=== PATIENT | female | born 1950 | race Caucasian/White ===

== ENCOUNTER 2017-07-31 00:17 | Emergency (ER) | payer MEDICARE, BC ==
[~2017-07-31] VITALS: Wt 145.5 kg
[~2017-07-31 00:17] MED LIST: ALBUTEROL; ARMOUR THYROID120 MG PO; ASPIRIN E.C. 8181 MG PO; ATENOLOL50 MG PO; COREG12.5 MG PO; DIOVAN320 MG PO; Eliquis; GLUCOPHAGE1000 MG PO; HCTZ 25MG25 MG PO; LIPITOR20 MG PO; Synthroid; TAZTIA XT; TOPROL XL 50MG50 MG PO; VITAMIN D32000 IU PO; [UNRECOGNIZED DRUG - OTHER]
[2017-07-31 00:30] LABS: BASO # 0.1 (0.0-0.2); EOS # 0.4 (0.0-0.7); EOS % 4.4 % (0-4.0); GRAN # 5.2 (1.4-6.5); GRAN % 66.1 % (42.2-75.2); HEMATOCRIT 41.1 % (37.0-47.0); HEMOGLOBIN 13.3 g/dl (12.5-16.0); LYMPH # 1.5 (1.2-3.4); LYMPH % 18.5 % (20.0-51.0); MEAN CELL VOLUME 89 fl (80.0-100.0); MEAN CORPUSCULAR HEMOGLOBIN 29 pg (27.0-31.0); MEAN CORPUSCULAR HGB CONC 32 g/dl (33.0-37.0); MEAN PLATELET VOLUME 10.5 fl (7.4-10.4); MONO # 0.8 (0.1-0.6); MONO % 9.6 % (1.7-9.3); PLATELET COUNT 171 K/mm3 (130-400); RED BLOOD COUNT 4.63 M/mm3 (4.10-5.30); REDCELL DISTRIBUTION WIDTH-CV 14.2 % (11.5-14.5); WHITE BLOOD COUNT 7.9 K/mm3 (4.8-10.8)
[2017-07-31 00:41] LABS: ADJUSTED CALCIUM 9.1 mg/dL (8.4-10.2); ALANINE AMINOTRANSFERASE 26 U/L (9-52); ALBUMIN 3.8 gm/dL (3.5-5.0); ALKALINE PHOSPHATASE 90 U/L (50-136); ANION GAP 11 mmol/L (7-16); BILIRUBIN,TOTAL 0.6 mg/dL (0.0-1.0); BLOOD UREA NITROGEN 20 mg/dL (7-17); CALCIUM 8.9 mg/dL (8.4-10.2); CARBON DIOXIDE 24 mmol/L (22-30); CHLORIDE 107 mmol/L (98-107); CREATININE, serum 0.99 mg/dL (0.52-1.25); GLUCOSE 151 mg/dL (74-106); POTASSIUM 4.1 mmol/L (3.4-5.0); SODIUM 142 mmol/L (137-145); TOTAL PROTEIN 6.5 gm/dL (6.4-8.2)
[2017-07-31 00:54] LABS: TROPONIN-I < 0.012 ng/mL (0.000-0.034)
[2017-07-31 01:31] LABS: MAGNESIUM 1.6 mg/dL (1.6-2.3)
[2017-07-31 02:13] LABS: PROTHROMBIN TIME 10.7 SECONDS (9.7-12.8)
[2017-07-31 02:16] LABS: PARTIAL THROMBOPLASTIN TIME 29.6 SECONDS (26.0-37.0)
[2017-07-31 07:15] VITALS: BP 171/106; PULSE 115
== END 2017-07-31 07:22 | disposition short-term general hospital (02) ==
LOC: COL.ER 00:17
PROVIDERS: Emergency Medicine
DX: I48.92 Unspecified atrial flutter (principal); I10 Essential (primary) hypertension; I48.91 Unspecified atrial fibrillation; E66.9 Obesity, unspecified; E03.9 Hypothyroidism, unspecified; E78.5 Hyperlipidemia, unspecified; Z90.710 Acquired absence of both cervix and uterus; Z85.3 Personal history of malignant neoplasm of breast; Z79.84 Long term (current) use of oral hypoglycemic drugs; Z90.13 Acquired absence of bilateral breasts and nipples
CPT/HCPCS: J1650; J3475; J7050

== ENCOUNTER 2018-12-24 11:20 | Inpatient (IN) | payer MEDICARE, BC ==
[2018-12-24] VITALS (628 sets, daily range): BP systolic 95–131; BP diastolic 47–67; PULSE 96–115; TEMP 98–99; O2SAT 82–99
[~2018-12-24] VITALS: Ht 172.7 cm; Wt 147.6 kg
[2018-12-24 11:43] LABS: BASO # 0.1 (0.0-0.2); BASO % 0.6 % (0.0-2.0); EOS # 0.2 (0.0-0.7); EOS % 2.4 % (0-4.0); GRAN # 6.1 (1.4-6.5); GRAN % 76.2 % (42.2-75.2); HEMATOCRIT 40.5 % (37.0-47.0); HEMOGLOBIN 13.1 g/dl (12.5-16.0); LYMPH # 1.2 (1.2-3.4); LYMPH % 14.8 % (20.0-51.0); MEAN CELL VOLUME 90 fl (80.0-100.0); MEAN CORPUSCULAR HEMOGLOBIN 29 pg (27.0-31.0); MEAN CORPUSCULAR HGB CONC 32 g/dl (33.0-37.0); MEAN PLATELET VOLUME 11.3 fl (7.4-10.4); MONO # 0.5 (0.1-0.6); MONO % 5.9 % (1.7-9.3); PLATELET COUNT 170 K/mm3 (130-400); RED BLOOD COUNT 4.48 M/mm3 (4.10-5.30); REDCELL DISTRIBUTION WIDTH-CV 14.2 % (11.5-14.5)
[2018-12-24 11:52] LABS: INR 1.4 (0.8-3.0)
[2018-12-24 11:54] LABS: PARTIAL THROMBOPLASTIN TIME 39.3 SECONDS (26.0-37.0)
[2018-12-24 11:56] LABS: ALANINE AMINOTRANSFERASE 22 U/L (9-52); ALBUMIN 3.5 gm/dL (3.5-5.0); ALKALINE PHOSPHATASE 75 U/L (50-136); ANION GAP 9 mmol/L (7-16); AST,SGOT 18 U/L (15-37); BILIRUBIN,TOTAL 0.8 mg/dL (0.0-1.0); BLOOD UREA NITROGEN 18 mg/dL (7-17); CALCIUM 8.8 mg/dL (8.4-10.2); CARBON DIOXIDE 26 mmol/L (22-30); CHLORIDE 107 mmol/L (98-107); CREATININE, serum 0.88 mg/dL (0.52-1.25); GLUCOSE 136 mg/dL (74-106); MAGNESIUM 1.7 mg/dL (1.6-2.3); PHOSPHOROUS 3.4 mg/dL (2.5-4.5); POTASSIUM 3.7 mmol/L (3.4-5.0); SODIUM 142 mmol/L (137-145); TOTAL PROTEIN 6.3 gm/dL (6.4-8.2)
[2018-12-24 12:09] LABS: TROPONIN-I < 0.012 ng/mL (0.000-0.035)
--- NOTE | 2018-12-24 12:53 | NUR ---
REPORT RECEIVED FROM KIKA BEDOLLA IN ED.
[2018-12-24] MEDS ORDERED: LEVOXYL0.15 MG PO (12:58)
[2018-12-24] MEDS ORDERED: GLUCOVANCE 2.51 TAB PO (12:58)
[2018-12-24] MEDS ORDERED: COZAAR100 MG PO (12:59)
[2018-12-24] MEDS ORDERED: HYGROTON 2525 MG/TAB PO (12:59)
[2018-12-24] MEDS ORDERED: ELIQUIS 5MG PO (12:59)
[2018-12-24] MEDS ORDERED: ASPIRIN 81M81 MG/TA2 PO (13:00)
[2018-12-24] MEDS ORDERED: COMPLETE SENIOR1 TA1 PO (13:00)
--- NOTE | 2018-12-24 13:59 | NUR ---
DR PURI HERE TO SEE PATIENT
--- NOTE | 2018-12-24 14:20 | NUR ---
DR JAMES PRESENT TO ASSESS PATIENT.
--- NOTE | 2018-12-24 14:30 | NUR ---
PAGED ANESTHESIA TO NOTIFY THEM OF CONSULT FOR CARDIOVERSION IN AM.
--- NOTE | 2018-12-24 14:54 | NUR ---
PAUL HERE TO PERFORM ECHOCARDIOGRAM.
--- NOTE | 2018-12-24 15:04 | NUR ---
NOTIFIED ANESTHESIA OF CONSULT FOR CARDIOVERSION IN AM.
--- NOTE | 2018-12-24 15:17 | NUR ---
CONSENT OBTAINED AND PLACED ON CHART
--- NOTE | 2018-12-24 15:18 | NUR ---
PT SITTING UP EATING MEAL
--- NOTE | 2018-12-24 19:40 | NUR ---
Called Dr. Baez to clarify that he would like Cardizem run through the night because orders were for one dose. Confirms he would like drip ran through the night per titration to maintain HR below 110 and above 60. Orders entered.
--- NOTE | 2018-12-24 20:00 | NUR ---
Assessment complete at this time. Patient resting sitting at the side of the bed. She is alert, oriented, and independent. Vitals stable. No complaints of pain or SOB. Patient has no needs at this time. Will continue to monitor. Call light within reach.
--- NOTE | 2018-12-24 22:47 | NUR ---
TOLD IN REPORT THAT PT WEARS A CPAP WITH A PRESSURE OF 11 AND WEARS A NASAL MASK WITH HUMIDIFICATION. WHEN ASKED PT ABOUT SETTING UP AND WEARING THE CPAP PT REFUSED. SHE SAID "I DON'T THINK I WILL BE GETTING MUCH SLEEP ANYWAYS AND I DON'T WANT TO BE HOOKED UP TO MUCH MORE OF ANYTHING ELSE" PT WAS FINE ON RA AT 95% NO DISTRESS WAS NOTED.
[2018-12-25] VITALS (999 sets, daily range): BP systolic 120–138; BP diastolic 58–84; PULSE 51–95; TEMP 97.6–98.7; O2SAT 83–100
--- NOTE | 2018-12-25 | NUR ---
Patient is sitting at the side of the bed at this time. No complaints of pain. Vitals are stable. Patient's HR has decreased to 80-90s still in Afib. Patient has no needs at this time and is now NPO. Will continue to monitor. Call light within reach.
--- NOTE | 2018-12-25 01:25 | NUR ---
Patient's HR dips below 60bpm at this time. Cardizem decreased to 10. Will continue to monitor and follow titration orders.
--- NOTE | 2018-12-25 04:00 | NUR ---
Patient is asleep at this time. Easily awakens. Patient has no complaints of pain or SOB. Vitals remain stable. HR continues to be stable in the 80-90s. Patient has no needs at this time. Will continue to monitor. Call light within reach.
[2018-12-25 05:16] LABS: BASO # 0.1 (0.0-0.2); BASO % 0.7 % (0.0-2.0); EOS # 0.3 (0.0-0.7); EOS % 3.8 % (0-4.0); GRAN # 5.3 (1.4-6.5); GRAN % 69.3 % (42.2-75.2); HEMATOCRIT 38.6 % (37.0-47.0); HEMOGLOBIN 12.2 g/dl (12.5-16.0); LYMPH # 1.4 (1.2-3.4); LYMPH % 18.4 % (20.0-51.0); MEAN CELL VOLUME 91 fl (80.0-100.0); MEAN CORPUSCULAR HEMOGLOBIN 29 pg (27.0-31.0); MEAN CORPUSCULAR HGB CONC 32 g/dl (33.0-37.0); MEAN PLATELET VOLUME 11.5 fl (7.4-10.4); MONO # 0.6 (0.1-0.6); MONO % 7.7 % (1.7-9.3); PLATELET COUNT 165 K/mm3 (130-400); RED BLOOD COUNT 4.23 M/mm3 (4.10-5.30); REDCELL DISTRIBUTION WIDTH-CV 14.4 % (11.5-14.5)
[2018-12-25 05:30] LABS: CREATININE, serum 0.78 mg/dL (0.52-1.25); POTASSIUM 3.5 mmol/L (3.4-5.0)
--- NOTE | 2018-12-25 07:15 | NUR ---
Received bedside report from GRAEME Aguilar. Patient was awkake and relaxing in bed. Medications varified.
--- NOTE | 2018-12-25 07:40 | NUR ---
Bedside report given to GRAEME Aguero and GRAEME Muñoz. Drip rates and medications reviewed. Transfer of care at this time.
--- NOTE | 2018-12-25 10:43 | NUR ---
SW attended clinical rounds and met with patient afterwards. Patient lives independently at home by herself. Her PCP is Dr Ryan Hernandez and she obtains prescriptions from [facility]. Patient does not use any medical equipment or home health services. She does have a DPOA for healthcare decisions. SW does not anticipate any needs upon discharge.
--- NOTE | 2018-12-25 17:10 | NUR ---
Dr Boyle in to see pt and gave ok for discharge. INT dc'd and pt dressed. D/C paperwork completed and reviewed with pt. Pt waiting on ride at this time. Will discharge once ride arrives.
--- NOTE | 2018-12-25 17:55 | NUR ---
Pt taken out to private car for discharge at this time.
== END 2018-12-25 17:55 | disposition home or self-care (01) | DRG 309 ==
LOC: COL.ER 11:20 → ICU 11:57
PROVIDERS: Emergency Medicine; ADMIT Hospitalist
PROC: 5A2204Z Restoration of Cardiac Rhythm, Single (ICD-10-PCS; principal; 2018-12-25)
DX: I48.0 Paroxysmal atrial fibrillation (principal); Z68.42 Body mass index [BMI] 45.0-49.9, adult; E78.5 Hyperlipidemia, unspecified; I10 Essential (primary) hypertension; E11.9 Type 2 diabetes mellitus without complications; E66.01 Morbid (severe) obesity due to excess calories; Z85.3 Personal history of malignant neoplasm of breast; J45.909 Unspecified asthma, uncomplicated; Z87.891 Personal history of nicotine dependence; G47.33 Obstructive sleep apnea (adult) (pediatric); E03.9 Hypothyroidism, unspecified; Z79.01 Long term (current) use of anticoagulants
CPT/HCPCS: 99222-AI; 99232-AI; 99239; J1160; J2704; J7030

== ENCOUNTER 2019-01-19 17:09 | Inpatient (IN) | payer MEDICARE, BC ==
[2019-01-19] VITALS (110 sets, daily range): BP systolic 142; BP diastolic 107; PULSE 124–130; TEMP 97.8; O2SAT 95–100
[~2019-01-19] VITALS: Ht 172.7 cm; Wt 146.4 kg
[~2019-01-19 17:09] MED LIST changes: +ASPIRIN 81M81 MG/TA2 PO; +COMPLETE SENIOR1 TA1 PO; +COZAAR100 MG PO; +ELIQUIS 5MG PO; +GLUCOVANCE 2.51 TAB PO; +HYGROTON 2525 MG/TAB PO; +LEVOXYL0.15 MG PO
[2019-01-19 17:47] LABS: BASO # 0.1 (0.0-0.2); BASO % 0.9 % (0.0-2.0); EOS # 0.4 (0.0-0.7); EOS % 3.8 % (0-4.0); GRAN # 6.2 (1.4-6.5); GRAN % 67.3 % (42.2-75.2); HEMATOCRIT 44.3 % (37.0-47.0); INR 1.1 (0.8-3.0); LYMPH # 1.7 (1.2-3.4); LYMPH % 18.5 % (20.0-51.0); MEAN CELL VOLUME 90 fl (80.0-100.0); MEAN CORPUSCULAR HEMOGLOBIN 28 pg (27.0-31.0); MEAN CORPUSCULAR HGB CONC 32 g/dl (33.0-37.0); MEAN PLATELET VOLUME 11.5 fl (7.4-10.4); MONO # 0.8 (0.1-0.6); MONO % 9.1 % (1.7-9.3); PLATELET COUNT 184 K/mm3 (130-400); PROTHROMBIN TIME 12.6 SECONDS (9.7-12.8); RED BLOOD COUNT 4.95 M/mm3 (4.10-5.30); REDCELL DISTRIBUTION WIDTH-CV 13.8 % (11.5-14.5)
[2019-01-19 17:50] LABS: PARTIAL THROMBOPLASTIN TIME 38.3 SECONDS (26.0-37.0)
[2019-01-19 17:52] LABS: ALANINE AMINOTRANSFERASE 28 U/L (9-52); ALBUMIN 3.8 gm/dL (3.5-5.0); ALKALINE PHOSPHATASE 86 U/L (50-136); ANION GAP 6 mmol/L (7-16); AST,SGOT 26 U/L (15-37); BILIRUBIN,TOTAL 0.7 mg/dL (0.0-1.0); BLOOD UREA NITROGEN 23 mg/dL (7-17); CARBON DIOXIDE 27 mmol/L (22-30); CHLORIDE 104 mmol/L (98-107); CREATININE, serum 0.81 mg/dL (0.52-1.25); GLUCOSE 88 mg/dL (74-106); POTASSIUM 4.3 mmol/L (3.4-5.0); SODIUM 138 mmol/L (137-145); TOTAL PROTEIN 6.8 gm/dL (6.4-8.2)
[2019-01-19 18:03] LABS: TROPONIN-I < 0.012 ng/mL (0.000-0.035)
[2019-01-19] MEDS ORDERED: HYGROTON 2525 MG/TAB (18:54)
[2019-01-19] MEDS ORDERED: COZAAR100 MG PO (18:54)
[2019-01-19] MEDS ORDERED: LIPITOR 80MG80 MG PO (19:46)
[2019-01-19 20:09] LABS: MAGNESIUM 1.8 mg/dL (1.6-2.3)
--- NOTE | 2019-01-19 20:30 | NUR ---
Pt admitted to ICU bed 3 from ED. Pt arrived via stretcher and placed on technical instructor course developer. Vitals stable upon arrival. Pt denies any complaints at this time. Will continue to monitor.
[2019-01-19 20:40] LABS: TSH w REFLEX 1.73 uIU/mL (0.465-4.680)
--- NOTE | 2019-01-19 23:27 | NUR ---
Admission assessment complete at this time. Plan of care reviewed at bedside with patient. Additional time taken to address any other needs or concerns. Vitals stable at this time. Denies pain or any other discomfort. Will continue to monitor.
--- NOTE | 2019-01-19 23:43 | NUR ---
Discontinuing cardizem per order and switching to amiodarone
[2019-01-20] VITALS (202 sets, daily range): BP systolic 069–166; BP diastolic 61–114; PULSE 62–101; TEMP 97.5–98.5; O2SAT 67–100
--- NOTE | 2019-01-20 | NUR ---
Pt resting comfortably in bed. Amiodarone bolus complete at this time and gtt started at 1 mg/min. Vitals stable at this time. Denies pain or any other discomfort. Will continue to monitor.
--- NOTE | 2019-01-20 04:00 | NUR ---
Pt sleeping comfortably in bed. Denies pain or any other discomfort. Vitals stable at this time. Will continue to monitor.
[2019-01-20 05:20] LABS: BASO # 0.1 (0.0-0.2); BASO % 1.1 % (0.0-2.0); EOS # 0.3 (0.0-0.7); EOS % 3.3 % (0-4.0); GRAN # 5.4 (1.4-6.5); GRAN % 67.5 % (42.2-75.2); HEMATOCRIT 41.8 % (37.0-47.0); HEMOGLOBIN 13.3 g/dl (12.5-16.0); LYMPH # 1.5 (1.2-3.4); LYMPH % 18.7 % (20.0-51.0); MEAN CELL VOLUME 90 fl (80.0-100.0); MEAN CORPUSCULAR HEMOGLOBIN 29 pg (27.0-31.0); MEAN CORPUSCULAR HGB CONC 32 g/dl (33.0-37.0); MEAN PLATELET VOLUME 11.3 fl (7.4-10.4); MONO # 0.7 (0.1-0.6); MONO % 8.9 % (1.7-9.3); PLATELET COUNT 176 K/mm3 (130-400); RED BLOOD COUNT 4.64 M/mm3 (4.10-5.30); REDCELL DISTRIBUTION WIDTH-CV 13.9 % (11.5-14.5)
[2019-01-20 05:32] LABS: CALCIUM 8.8 mg/dL (8.4-10.2); CREATININE, serum 0.7 mg/dL (0.52-1.25); POTASSIUM 3.6 mmol/L (3.4-5.0)
--- NOTE | 2019-01-20 07:32 | NUR ---
Bedside report given to GRAEME Thomas.
--- NOTE | 2019-01-20 07:47 | NUR ---
Report recieved from GRAEME Chandler. Pt AAOx4, no complaints, SMART goals for the day set, NPO status re-educated. Call light within reach, pt states "I will call if I need to get up to use the bathroom".
--- NOTE | 2019-01-20 09:50 | NUR ---
AMANDA and SW student met with the patient to discuss discharge plan. The patient lives alone in [place]. She states that she has friend support nearby. She reports independence with ADLs and has a walker and cane. The patient's PCP is Dr. Ryan Hernandez and she receives her medications at the [facility]. She reports no difficulties obtaining her meds. The patient does not have advanced directives in EMR, but states that she does have them completed. The patient reports that her friend Cate Jones, who is also her DPOA-HC, can bring a copy in. AMANDA also completed the 30 Re-admission Interview with the patient. The patient plans to return home upon discharge. No identified needs at this time, but SW to continue to follow.
--- NOTE | 2019-01-20 10:06 | NUR ---
Initial visit; Patient thanked [employer]keeper [employer] for looking in on her, offering God's blessings and adding her to the list for [facility] on Saturday.
--- NOTE | 2019-01-20 10:10 | NUR ---
MD Sasha and BeverlyRN at bedside - plan to perform elective cardioversion - pt consented. Anesthesia contacted by GRAEME Paul. Room prepeared with: OM mask, suction, 1L NS, Zoll Patchs Anterior-Posterior applied, crash-cart outside room. Pt denies nervousness at this time. Pt has voided
--- NOTE | 2019-01-20 11:03 | NUR ---
All parties present, time out completed, pt and staff all in agreement.
--- NOTE | 2019-01-20 11:03 | NUR ---
200J synchronized shock delivered - converted rhythm to sinus, rate in the 60's.
--- NOTE | 2019-01-20 13:16 | NUR ---
Report phoned to GRAEME Johns
--- NOTE | 2019-01-20 15:00 | NUR ---
pt arrived to unit, oriented to room, physical assessment completed nad WNL. she denies SOB, palpitaitons, heart is regular S1S2 to auscultation, on RAn, lungs clear throughout, pulses 2+ bilaterally. Friends at bedside, call lgiht in reach
--- NOTE | 2019-01-20 17:26 | NUR ---
Since pt arrived to unit she has denied any pain, palpitations, SOB. Vitals stable, no complaints, call lgt in reach
--- NOTE | 2019-01-20 19:12 | NUR ---
Report given to Myah Najera, pt denies needs
--- NOTE | 2019-01-20 22:14 | NUR ---
Patient assessed at this time. Denies having pain and discomfort. INT to right hand, patent, and without redness, warmth, and pain. Flushed with 5ml NS. LS CTA. Heart with regular rate and rhythm. Denies SOB and dyspnea. Denies chest pain and discomfort. Resting in bed watching TV at this time. Call light is within reach. Denies having any needs or concerns at this time.
[2019-01-21 03:36] VITALS: BP 150/66; PULSE 95; TEMP 97.6
--- NOTE | 2019-01-21 06:52 | NUR ---
Patient has been denying having pain and discomfort throughout the night. Voices no needs or concerns. Sitting up in bed watching TV at this time. Call light is within reach.
--- NOTE | 2019-01-21 07:00 | NUR ---
Report on to GRAEME Zhao.
--- NOTE | 2019-01-21 07:30 | NUR ---
Shift assessment complete, tele on, heart rate and rhythm regular. INT in right hand no redness/swelling noted. Pt sitting up in bed, no concerns or complaints of pain.
[2019-01-21 07:45] LABS: CALCIUM 8.5 mg/dL (8.4-10.2); CREATININE, serum 0.73 mg/dL (0.52-1.25); POTASSIUM 3.6 mmol/L (3.4-5.0)
[2019-01-21 07:53] VITALS: BP 153/78; PULSE 68; TEMP 98.5
--- NOTE | 2019-01-21 08:31 | NUR ---
Patient alert and oriented, answers questions appropriately. See assessment. No c/o chest pain or pressure. No c/o pain radiating to BUE. No c/o heart racing. Requests to discharge today. No other c/o at this time.
[2019-01-21 11:08] VITALS: BP 155/78; PULSE 65; TEMP 97.5
--- NOTE | 2019-01-21 11:11 | NUR ---
Assessment unchanged, VSS, voiced no concerns at this time.
--- NOTE | 2019-01-21 11:44 | NUR ---
Report off to GRAEME Zhao
[2019-01-21 15:48] VITALS: BP 166/65; PULSE 63; TEMP 97.4
--- NOTE | 2019-01-21 20:12 | NUR ---
Resting in recliner. Assessment complete. Lungs clear. Heart sounds normal. Bowels active x4. Bilateral lower leg edema +1. INT site right hand flushes well. Provided patient 6 units of novolog for blood sugar of 206 at this time. Denies any pain. Denies needs. Telemetry pads checked and replaced. Call light in reach.
[2019-01-21 21:57] VITALS: BP 128/64; PULSE 56; TEMP 97.8
--- NOTE | 2019-01-22 00:15 | NUR ---
Resting in recliner. Denies needs. Call light in reach.
[2019-01-22 00:49] VITALS: BP 150/69; PULSE 59; TEMP 97.6
--- NOTE | 2019-01-22 01:45 | NUR ---
0130- Reports SOA while resting. States wears CPAP at home, but does not like hospital CPAPs. Oxygen saturation 95% on room air. Provided patient with 1 liter of oxygen while sleeping. 0145 Reports feels like oxygen helping. Will report any other changes
--- NOTE | 2019-01-22 04:39 | NUR ---
Resting in bed. Denies pain. Denies needs. Call light in reach.
[2019-01-22 04:56] VITALS: BP 138/59; PULSE 60; TEMP 97.4
--- NOTE | 2019-01-22 06:24 | NUR ---
Uneventful night. Resting in bed this AM. Call light in reach.
--- NOTE | 2019-01-22 06:59 | NUR ---
Pt was sleeping prior to entering room, AAOx4 now, stating some "chest heaviness and 3-5 times per minute requring a deep breath". Last EKG was completed yesteray (01/21/2019) around 1300. EKG ordered and respiratory therapist called. MD Cristal called and notified - requesting EKG, informed EKG per ordered already per protocol. Chest heaviness stated as a 3-4/10. Pt requesting another 1-2hours of sleep. laboratory technical specialist Rachel notified of stated chest pain.
--- NOTE | 2019-01-22 07:19 | NUR ---
Report given to GRAEME Thomas.
[2019-01-22 07:39] VITALS: BP 147/67; PULSE 57; TEMP 98.5
[2019-01-22 11:08] VITALS: BP 151/62; PULSE 58; TEMP 98.3
[2019-01-22 15:25] VITALS: BP 149/56; PULSE 62; TEMP 98.7
--- NOTE | 2019-01-22 19:02 | NUR ---
Report received from GRAEME Thomas. Sitting at bedside. Denies needs.
[2019-01-22 19:28] VITALS: BP 141/59; PULSE 64; TEMP 97.4
--- NOTE | 2019-01-22 21:30 | NUR ---
Resting in recliner. Assessment complete. Lungs clear. Heart sounds normal, irregular. Bowels active x4. Bilateral lower leg edema +1 present. Denies pain. INT to right hand leaking when flushed. Attempted x1 to start new INT, unsuccessful. Patient would like to keep current INT. Redressed and no longer leaking when flushed. Will closely monitor. Denies needs at this time. Call light in reach.
[2019-01-23 00:23] VITALS: BP 138/50; PULSE 69; TEMP 97.7
--- NOTE | 2019-01-23 01:20 | NUR ---
Resting in bed. Denies need. Denies pain. Call light in reach.
[2019-01-23 04:21] VITALS: BP 142/67; PULSE 57; TEMP 97.7
--- NOTE | 2019-01-23 06:16 | NUR ---
Unevenful night. No reports of chest tightness or shortness of breath throughout night. Sitting in recliner watching TV this AM. Denies needs. Call light in reach.
--- NOTE | 2019-01-23 06:48 | NUR ---
Report given to GRAEME Johns. Patient resting in bed.
--- NOTE | 2019-01-23 07:40 | NUR ---
Pt is A+Ox3, pleasant, denies pain, SOB, palpitations. QTC was 452 this am. Physical assessment completed, heart regular S1S2. RLE 2+ edema. pt on RA, ate full breakfast, denies further needs, call light in reach. INT to Rwrist flushes easily, no redness
[2019-01-23 07:59] VITALS: BP 130/65; PULSE 64; TEMP 98.7
[2019-01-23] MEDS ORDERED: BETAPACE 80MG80 MG PO (10:13)
--- NOTE | 2019-01-23 11:37 | NUR ---
THis RN reveiwed discharge instructions with pt, answered all questions, called pharmacy to verify a medication questions, no further needs. INT removed with tip intact, site free of redness, swelling. Personal belongings collected
== END 2019-01-23 11:38 | disposition home or self-care (01) | DRG 309 ==
LOC: COL.ER 17:09 → ICU 19:49 → MEDICAL 01-20 14:02
PROVIDERS: Family Medicine; Nurse Practitioner Family; Physician Assistant
PROC: 5A2204Z Restoration of Cardiac Rhythm, Single (ICD-10-PCS; principal; 2019-01-20)
DX: I48.0 Paroxysmal atrial fibrillation (principal); Z68.41 Body mass index [BMI] 40.0-44.9, adult; I10 Essential (primary) hypertension; E78.5 Hyperlipidemia, unspecified; E11.9 Type 2 diabetes mellitus without complications; G47.33 Obstructive sleep apnea (adult) (pediatric); Z85.3 Personal history of malignant neoplasm of breast; E03.9 Hypothyroidism, unspecified; Z87.891 Personal history of nicotine dependence; Z79.01 Long term (current) use of anticoagulants; E66.01 Morbid (severe) obesity due to excess calories
CPT/HCPCS: 99223-AI; 99231-AI; 99232-AI; 99239; J0282; J1815; J7060

== ENCOUNTER 2019-07-25 11:24 | Inpatient (IN) | payer MEDICARE, BC ==
[~2019-07-25] VITALS: Ht 172.7 cm; Wt 156.1 kg
[~2019-07-25 11:24] MED LIST changes: +BETAPACE 80MG80 MG PO; +HYGROTON 2525 MG/TAB; +LIPITOR 80MG80 MG PO
[2019-07-25 14:14] LABS: BASO # 0.1 (0.0-0.2); BASO % 0.7 % (0.0-2.0); EOS # 0.5 (0.0-0.7); EOS % 4.9 % (0-4.0); GRAN # 7.4 (1.4-6.5); GRAN % 76.8 % (42.2-75.2); LYMPH # 0.9 (1.2-3.4); LYMPH % 9.3 % (20.0-51.0); MEAN CELL VOLUME 92 fl (80.0-100.0); MEAN CORPUSCULAR HGB CONC 31 g/dl (33.0-37.0); MONO # 0.8 (0.1-0.6); PLATELET COUNT 211 K/mm3 (130-400); RED BLOOD COUNT 3.44 M/mm3 (4.10-5.30); REDCELL DISTRIBUTION WIDTH-CV 13.8 % (11.5-14.5)
[2019-07-25 14:15] LABS: HEMATOCRIT 31.5 % (37.0-47.0); HEMOGLOBIN 9.9 g/dl (12.5-16.0); MEAN CORPUSCULAR HEMOGLOBIN 29 pg (27.0-31.0)
[2019-07-25 14:19] LABS: INR 1.4 (0.8-3.0); PROTHROMBIN TIME 17.1 SECONDS (9.7-12.8)
[2019-07-25 14:21] LABS: PARTIAL THROMBOPLASTIN TIME 35.3 SECONDS (26.0-37.0)
[2019-07-25 14:30] LABS: ALBUMIN 3.6 gm/dL (3.5-5.0); C-REACTIVE PROTEIN 5.6 mg/dL (0.0-0.9); CALCIUM 8.6 mg/dL (8.4-10.2); CREATININE, serum 0.86 (0.52-1.25); TOTAL PROTEIN 6.7 gm/dL (6.4-8.2)
[2019-07-25 15:19] LABS: COLLECTION METHOD CLEAN CATCH
[2019-07-25 15:26] LABS: MUCOUS Present /lpf; PH 5 (5-8); URINE APPEARANCE Clear; URINE BACTERIA Rare /hpf; URINE BILIRUBIN Negative (NEGATIVE); URINE BLOOD Negative (NEGATIVE); URINE COLOR Yellow; URINE GLUCOSE Negative (NEGATIVE); URINE KETONE Negative (NEGATIVE); URINE LEUKOCYTE ESTERASE Negative (NEGATIVE); URINE NITRATE Negative (NEGATIVE); URINE PROTEIN(semi-quant) Negative (NEGATIVE); URINE UROBILINOGEN >=4.0 mg/dL (NEGATIVE)
--- NOTE | 2019-07-25 18:34 | NUR ---
Pt arrived into room 316 at this time. She is A/O x3. LLE red and swollen, some drainage. IV abx infusing. POC discussed with patient who verbalizes understanding.
[2019-07-25 19:12] VITALS: BP 162/61; PULSE 72
[2019-07-25 20:03] VITALS: BP 162/61; PULSE 71; TEMP 98.3
[2019-07-25] MEDS ORDERED: NORVASC 10MG10 MG PO (20:26)
--- NOTE | 2019-07-25 20:30 | NUR ---
Admission assessment completed. Home meds reviewed. Pt comfortable. Friends at bedside. Respirations even and unlabored. Lungs clear. Abdomen soft, nontender. BS+. LLE edematous, red, hot and weeping. Two open areas noted, as well as a blister. culture obtained. Wrapped with guaze. Pedal pulses 2+. IVF to RAC IV site. Ambultatory to bathroom. No needs noted.
[2019-07-25 21:27] VITALS: BP 140/51; PULSE 58; TEMP 98.8
--- NOTE | 2019-07-25 22:05 | NUR ---
Spoke with Abbie VALLE on phone. Orders received to keep pt NPO after midnight until seen by ortho.
[2019-07-26] VITALS (7 sets, daily range): BP systolic 127–146; BP diastolic 44–62; PULSE 58–67; TEMP 97.5–99.9
--- NOTE | 2019-07-26 02:00 | NUR ---
Pt reports increased pain to LLE 8/10 which woke her from sleep. Leg dressing changed.
--- NOTE | 2019-07-26 05:28 | NUR ---
Pt resting in bed. No acute distress noted. Pt c/o pain 5/10 in LLE. PRN pain medication given.
[2019-07-26 05:59] LABS: BASO # 0.1 (0.0-0.2); BASO % 0.6 % (0.0-2.0); EOS # 0.5 (0.0-0.7); EOS % 5.2 % (0-4.0); GRAN # 6.9 (1.4-6.5); GRAN % 74.3 % (42.2-75.2); LYMPH % 10.9 % (20.0-51.0); MEAN CELL VOLUME 91 fl (80.0-100.0); MEAN CORPUSCULAR HGB CONC 32 g/dl (33.0-37.0); MEAN PLATELET VOLUME 11.2 fl (7.4-10.4); MONO # 0.8 (0.1-0.6); MONO % 8.6 % (1.7-9.3); PLATELET COUNT 176 K/mm3 (130-400); RED BLOOD COUNT 3.15 M/mm3 (4.10-5.30); REDCELL DISTRIBUTION WIDTH-CV 13.9 % (11.5-14.5)
[2019-07-26 06:00] LABS: CALCIUM 8.3 mg/dL (8.4-10.2); CREATININE, serum 0.63 (0.52-1.25); POTASSIUM 3.9 mmol/L (3.4-5.0)
[2019-07-26 06:02] LABS: HEMATOCRIT 28.5 % (37.0-47.0); HEMOGLOBIN 9.2 g/dl (12.5-16.0); MEAN CORPUSCULAR HEMOGLOBIN 29 pg (27.0-31.0)
--- NOTE | 2019-07-26 07:16 | NUR ---
Vancomycin Initial Dosing Pharmacy Note Ordering provider: Rito Valdez MD Indication/duration: CELLULITIS Relevant comorbidities: DM, OBESITY LABS: WBC 9.3, SCr 0.63, CrCl >100 Recommendation: 10 mg/kg Loading dose: vancomycin 1.5 grams Maintenance dose: vancomycin 1.5 grams every 12 hours Trough goal: 10-15 ug/mL, trough 07/27/19 @1900
--- NOTE | 2019-07-26 09:41 | NUR ---
Pt assessment complete. Pt is laying in bed upon entry, she is A/O x3. Her breathing is even and unlabored on RA. Pt denies SOB. Pt reports pain 3/10, refuses intervention at this time. Dressing to LLE changed at this time, no wheeping visualized. Ortho in to see patient. IVF infusing without complications. No needs at this time. Call light within reach.
--- NOTE | 2019-07-26 13:43 | NUR ---
Patient lives at home alone in [place], [place] and plans to return home upon her recovery. 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 Patient has mobility assistance devices at home to use if needed from previous surgeries/injuries. Her primary care physician is Dr. Janice Weber and also receives medical care from Dr. Jarocho Loaiza and Dr. Toñito Bee. Patient's pharmacy is [facility] and she does have advance directives of healthcare completed which she has named her friend Rachel Woodruff as her primary DPOA (phone [phone]) and her secondary DPOA as her friend Cate Warren (phone [phone]). Patient lives alone but has many local friends who help support her needs. No further needs at this time and social insurance administrator will follow as needed.
--- NOTE | 2019-07-26 19:19 | NUR ---
Pt had intermittent pain through the day. PRN pain medications administered. LLE elevated on pillows, dressing CDI and ice in place. POC discussed with patient who will remain NPO after midnight for possible procedure with ortho in the AM, pt verbalizes understanding. During the afternoon the patient's O2 was below 90%, patient placed on 2L O2 via NC. Pt does report some "wheeziness" and cough that started today. RT notified. No needs at this time. Call light within reach.
--- NOTE | 2019-07-26 19:20 | NUR ---
Shift assessment complete. Pt resting in bed, awake, a&o, cooperative c cares. Pt c/o continued pain to LLE, rated "not much" at rest but reports int "intense, shooting pain... 04/27"; PRN pain anesthesiology medical doctor per pt req. Pt denies any other c/o. LLE elevated c ice in place, dressing per ortho C/D/I, CSM intact. IV patent. Tele in place. Pt denies further needs. Call light in reach, will continue to monitor.
[2019-07-27 03:52] VITALS: BP 135/57; PULSE 55; TEMP 98.7
[2019-07-27 06:17] LABS: BASO # 0.1 (0.0-0.2); BASO % 0.7 % (0.0-2.0); EOS # 0.5 (0.0-0.7); EOS % 5.1 % (0-4.0); GRAN # 6.7 (1.4-6.5); GRAN % 74.4 % (42.2-75.2); LYMPH # 0.9 (1.2-3.4); LYMPH % 9.9 % (20.0-51.0); MEAN CELL VOLUME 92 fl (80.0-100.0); MEAN CORPUSCULAR HGB CONC 31 g/dl (33.0-37.0); MEAN PLATELET VOLUME 11.2 fl (7.4-10.4); MONO # 0.9 (0.1-0.6); MONO % 9.6 % (1.7-9.3); PLATELET COUNT 186 K/mm3 (130-400); RED BLOOD COUNT 3.03 M/mm3 (4.10-5.30); REDCELL DISTRIBUTION WIDTH-CV 13.9 % (11.5-14.5)
[2019-07-27 06:25] LABS: CREATININE, serum 0.66 (0.52-1.25); POTASSIUM 3.6 mmol/L (3.4-5.0)
[2019-07-27 06:27] LABS: HEMOGLOBIN 8.8 g/dl (12.5-16.0); MEAN CORPUSCULAR HEMOGLOBIN 29 pg (27.0-31.0)
[2019-07-27 07:13] VITALS: BP 134/62; PULSE 58; TEMP 97.9
--- NOTE | 2019-07-27 08:00 | NUR ---
Patient A&Ox4, VSS O2 2L NC, no reported SOB. IV CDI, fluids infusing. Consent signed for procedure on LLL. Patient NPO. LLL elevated on 3 pillows, wrapped with emily wrap. No further needs expressed from patient. Call light within reach
--- NOTE | 2019-07-27 11:15 | NUR ---
Patient back to room 316 from OR. A&Ox4, reporting decreased pain in LLL, rating 3/10. No pain medication requested. Post op VS monitored. Patient assisted with SB assist back to bed. Call light within reach. Ana Maria at bedside to place a PICC line.
[2019-07-27 12:50] VITALS: BP 135/61; PULSE 62; TEMP 97.7
--- NOTE | 2019-07-27 14:44 | NUR ---
Initial visit; Patient thanked Headwaitress for looking in on her and although she is well cared for by her alevism family now knows there is someone here who has offered to help also.
[2019-07-27 16:27] VITALS: BP 123/43; PULSE 61; TEMP 98.6
--- NOTE | 2019-07-27 18:00 | NUR ---
Patient resting in bed. LLL elevated on pillow, hemovac with 30ml sanganious output. VSS 4L NC O2, no reported SOB. IV CDI, fluids infusing. No pain medication requested. No further needs expressed from patient. Call light within reach
[2019-07-27 19:01] VITALS: BP 145/54; PULSE 64; TEMP 99.5
--- NOTE | 2019-07-27 19:50 | NUR ---
Shift assessment complete. Pt resting in bed, awake, a&o, cooperative c cares. Pt cont c/o pain to LLE, reports pain is "much better" p ortho procedure. Pain rated "about 5/10" c int sharp shooting pains; PRN pain medical social worker per pt request. Pt denies any other c/o. Ortho dressing noted to LLE hematoma, dressing C/D/I. Hemavac in place, compression suction s difficulty c aleks bloody drainage noted. PICC noted to RUE, patent c good blood return. O2 per NC. Tele in place. Pt denies further needs at this time. Call light in reach, will continue to monitor.
[2019-07-27 23:56] VITALS: BP 141/49; PULSE 59; TEMP 97.8
[2019-07-28 03:05] VITALS: BP 141/75; PULSE 55; TEMP 98.3
[2019-07-28 07:07] LABS: BASO # 0.1 (0.0-0.2); BASO % 0.5 % (0.0-2.0); EOS # 0.5 (0.0-0.7); EOS % 4.8 % (0-4.0); GRAN # 7.4 (1.4-6.5); GRAN % 79.1 % (42.2-75.2); LYMPH # 0.6 (1.2-3.4); LYMPH % 6.5 % (20.0-51.0); MEAN CELL VOLUME 93 fl (80.0-100.0); MEAN CORPUSCULAR HGB CONC 31 g/dl (33.0-37.0); MEAN PLATELET VOLUME 11.5 fl (7.4-10.4); MONO # 0.8 (0.1-0.6); MONO % 8.7 % (1.7-9.3); PLATELET COUNT 185 K/mm3 (130-400); RED BLOOD COUNT 2.87 M/mm3 (4.10-5.30); REDCELL DISTRIBUTION WIDTH-CV 13.8 % (11.5-14.5)
[2019-07-28 07:14] LABS: CALCIUM 7.7 mg/dL (8.4-10.2); CREATININE, serum 0.74 (0.52-1.25); MAGNESIUM 2.1 mg/dL (1.6-2.3); POTASSIUM 3.7 mmol/L (3.4-5.0)
[2019-07-28 07:15] LABS: HEMATOCRIT 26.6 % (37.0-47.0); HEMOGLOBIN 8.2 g/dl (12.5-16.0); MEAN CORPUSCULAR HEMOGLOBIN 29 pg (27.0-31.0)
[2019-07-28 08:11] VITALS: BP 146/59; PULSE 59; TEMP 98.4
--- NOTE | 2019-07-28 08:32 | NUR ---
Pt assessment complete. Pt is laying in bed upon entry, she is A/O x3. Her breathing is even and unlabored on 4L O2, pt has audible tracheal wheezing. Pt reports some SOB and cough. Pain 5/10, PRN pain medication administered. Pt denies N/V. Pt advised to elevated LLE, verbalizes understanding. No needs at this time. Call light within reach.
[2019-07-28 12:25] VITALS: BP 133/58; PULSE 65; TEMP 98
[2019-07-28 15:01] VITALS: BP 152/62; PULSE 68; TEMP 98.3
--- NOTE | 2019-07-28 15:14 | NUR ---
AMANDA met with the patient to review discharge plan. The patient reports that she still plans to return home upon discharge and is not interested in any home health services. The patient had no other questions or concerns at this time. AMANDA to continue to follow.
--- NOTE | 2019-07-28 18:38 | NUR ---
Pt had uneventful day. Pain improved to LLE. Pt remains on 4L O2 via NC, feels SOB on exertion occasionally at rest. Drain in place. No needs at this time. Call light within reach.
[2019-07-28 19:53] VITALS: BP 149/55; PULSE 66; TEMP 98.1
--- NOTE | 2019-07-28 20:00 | NUR ---
Shift assessment complete. Pt resting in bed, awake, a&o, cooperative c cares. Pt cont c/o LLE pain, rated "5/10" at this time; PRN [place] admin c HS meds per pt request. Pt denies any other pain or c/o. Ortho dressing to LLE C/D/I. Hemavac to compression drainage s complication, small amount bloody drainage noted. PICC noted to RUE, patent c good blood return. Tele in place. O2 per NC. Pt denies further needs. Call light in reach, will continue to monitor.
[2019-07-28 23:32] VITALS: BP 139/53; PULSE 58; TEMP 98.1
[2019-07-29 03:49] VITALS: BP 151/63; PULSE 65; TEMP 97.8
[2019-07-29 06:33] LABS: CALCIUM 8.1 mg/dL (8.4-10.2); CREATININE, serum 0.7 (0.52-1.25); POTASSIUM 3.7 mmol/L (3.4-5.0)
[2019-07-29 08:13] VITALS: BP 152/61; PULSE 66; TEMP 97.7
[2019-07-29 08:15] LABS: HEMATOCRIT 28.1 % (37.0-47.0); HEMOGLOBIN 8.6 g/dl (12.5-16.0); MEAN CELL VOLUME 93 fl (80.0-100.0); MEAN CORPUSCULAR HEMOGLOBIN 28 pg (27.0-31.0); MEAN CORPUSCULAR HGB CONC 31 g/dl (33.0-37.0); PLATELET COUNT 208 K/mm3 (130-400); RED BLOOD COUNT 3.03 M/mm3 (4.10-5.30)
[2019-07-29 08:16] LABS: EOSINOPHIL 4 % (0-4); LYMPHOCYTE 13 % (20.0-51.0); NEUTROPHILS 75 % (42.0-75.2); PLATELET ESTIMATE NORMAL (NORMAL)
--- NOTE | 2019-07-29 08:35 | NUR ---
PT RESTING IN BED AM ASSESSMENTS COMPLETE, AM MEDS GIVEN PER ORDERS. LD MUNGUIA PA IN TO ROUND ON PATIENT. DISCONTINUED DRAIN TO LLE. RIO WRAP OVER INCISION CDI. PICC LINE FLUSHED WITH GOOD BLOOD RETURN.
--- NOTE | 2019-07-29 09:45 | NUR ---
PICC intact right upper arm with sterile dressing change with scant amount of dried reddish drainage noted on disk. insertion site cleansed with chloraprep x 1, chlorhexidine impregnated disk applied, skin prep, stat lock, and tegaderm applied. no signs or symptoms of IV complications noted. no concerns voiced.
[2019-07-29] MEDS ORDERED: FERROUS SU325 MG/TAB PO (12:01)
[2019-07-29] MEDS ORDERED: VITAMIN C500 MG PO (12:02)
[2019-07-29] MEDS ORDERED: AMOXICILLIN 8751 TAB PO (12:03)
[2019-07-29 12:20] VITALS: BP 146/75; PULSE 61; TEMP 98.1
--- NOTE | 2019-07-29 12:26 | NUR ---
NEW ORDERS RECIEVED FROM HOSPITALIST.
[2019-07-29] MEDS ORDERED: NORCO 325 MG-7.1 TAB PO (13:02)
--- NOTE | 2019-07-29 13:52 | NUR ---
WALKED WITH PATIENT AND PT AROUND 12:45. PATIENT WAS 92% ON RA AT REST SITTING UP TAKING DEEP BREATHS. PATIENT AMBULATED ABOUT 200 FEET. SPO2 DURING THIS TIME DECREASED TO 87%. 4L WAS REQUIRED TO INCREASE SPO2 TO 92%.
--- NOTE | 2019-07-29 13:57 | NUR ---
The patient is to discharge back home today, 07/29. The patient did qualify for home oxygen. AMANDA met with the patient to discuss DME options and presented and explained the Patient Choice Form for DME. The patient chose [facility]. Patient Choice Form signed by the patient and she was provided a copy. AMANDA contacted and faxed the patient's oxygen order to Priyanka at [facility]. AMANDA presented and explained the IM form the patient. The patient verbalized understanding, signed, and she was provided a copy. Awaiting delivery of the patient's oxygen to her room.
--- NOTE | 2019-07-29 14:27 | NUR ---
Pura, at [facility], reports that the patient's insurance will not cover the oxygen, due to her having an acute illness. Pura reports that they would have the patient sign an ABN Form and collect payment information, in the event her insurance does not cover it. She states that she would be private paying $200-#300 a month. AMANDA informed the patient of the above information. The patient reports that she is agreeable to move forward with getting the oxygen. AMANDA updated Pura at [facility]. Pura reports that they will have one of their staff members deliver a portable tank to her room. No additional needs at this time.
--- NOTE | 2019-07-29 15:55 | NUR ---
discharge instructions reviewed with patient. questions answered. patient had a fentnyl patch to VIDAL. Removed and wasted in med waste in med room witnessed by Joann [employer] chiropractic teacher.
--- NOTE | 2019-07-29 16:27 | NUR ---
PT TAKEN TO ED ENTRANCE TO MEET RIDE PER WHEEL CHAIR.
== END 2019-07-29 16:39 | disposition home or self-care (01) | DRG 602 ==
LOC: COL.ER 11:24 → MEDICAL 16:06
PROVIDERS: Emergency Medicine; Nurse Practitioner Family; Orthopaedic Surgery; ADMIT Internal Medicine
PROC: 02HV33Z Insertion of Infusion Device into Superior Vena Cava, Percutaneous Approach (ICD-10-PCS; 2019-07-27)
PROC: 0Y9J0ZZ Drainage of Left Lower Leg, Open Approach (ICD-10-PCS; principal; 2019-07-27 10:00)
DX: L03.116 Cellulitis of left lower limb (principal); J96.01 Acute respiratory failure with hypoxia; J98.11 Atelectasis; D62 Acute posthemorrhagic anemia; Z68.43 Body mass index [BMI] 50.0-59.9, adult; S80.12XA Contusion of left lower leg, initial encounter; I48.0 Paroxysmal atrial fibrillation; B95.61 Methicillin susceptible Staphylococcus aureus infection as the cause of diseases classified elsewhere; I10 Essential (primary) hypertension; E78.5 Hyperlipidemia, unspecified; E11.9 Type 2 diabetes mellitus without complications; J45.909 Unspecified asthma, uncomplicated; E66.01 Morbid (severe) obesity due to excess calories; M54.32 Sciatica, left side; G47.33 Obstructive sleep apnea (adult) (pediatric); E03.9 Hypothyroidism, unspecified; M19.90 Unspecified osteoarthritis, unspecified site; Z85.3 Personal history of malignant neoplasm of breast; Z92.21 Personal history of antineoplastic chemotherapy; Z96.611 Presence of right artificial shoulder joint; Z96.653 Presence of artificial knee joint, bilateral; Z79.890 Hormone replacement therapy; Z79.84 Long term (current) use of oral hypoglycemic drugs; Z79.01 Long term (current) use of anticoagulants; Z79.82 Long term (current) use of aspirin; Z87.891 Personal history of nicotine dependence; W18.09XA Striking against other object with subsequent fall, initial encounter; Y93.89 Activity, other specified
CPT/HCPCS: 99231-AI; 99232-AI; 99239; A4216; A9284; C1751; G0378; J0690; J0696; J1170; J1815; J2405; J2704; J3010; J3370; J7030; J7050; Q9967

== ENCOUNTER → 2020-07-13 | Outpatient (CLI) | payer MEDICARE, BC ==
[~2020-07-13] MED LIST changes: +AMOXICILLIN 8751 TAB PO; +FERROUS SU325 MG/TAB PO; +NORCO 325 MG-7.1 TAB PO; +NORVASC 10MG10 MG PO; +VITAMIN C500 MG PO
== END ==
LOC: MC.RAD 07:57
DX: Z12.31 Encounter for screening mammogram for malignant neoplasm of breast (principal); Z90.13 Acquired absence of bilateral breasts and nipples; Z98.82 Breast implant status

== ENCOUNTER 2021-11-15 15:12 | Inpatient (IN) | payer MEDICARE, BC ==
[~2021-11-15] VITALS: Ht 172.7 cm; Wt 134.8 kg
[2021-11-15 16:32] LABS: BASO # 0.1 K/mm3 (0.0-0.2); EOS # 0.3 K/mm3 (0.0-0.7); EOS % 4.4 % (0.0-4.0); GRAN # 4.8 K/mm3 (1.4-6.5); GRAN % 71.6 % (42.2-75.2); HEMATOCRIT 38.8 % (37.0-47.0); HEMOGLOBIN 12.8 g/dl (12.5-16.0); LYMPH % 14.3 % (20.0-51.0); MEAN CELL VOLUME 89 fl (80.0-100.0); MEAN CORPUSCULAR HEMOGLOBIN 30 pg (27-31); MEAN CORPUSCULAR HGB CONC 33 g/dl (33.0-37.0); MEAN PLATELET VOLUME 11.6 fl (7.4-10.4); MONO # 0.6 K/mm3 (0.1-0.6); MONO % 8.4 % (1.7-9.3); PLATELET COUNT 146 K/mm3 (130-400); RED BLOOD COUNT 4.34 M/mm3 (4.10-5.30); REDCELL DISTRIBUTION WIDTH-CV 13.9 % (11.5-14.5)
[2021-11-15 16:54] LABS: ALBUMIN 3.3 gm/dL (3.4-4.8); CREATININE, serum 0.82 mg/dL (0.57-1.11); TOTAL PROTEIN 6.5 gm/dL (6.2-8.1)
[2021-11-15 17:00] LABS: TROPONIN-I 0.01 ng/mL (0.00-0.033)
[2021-11-15] MEDS ORDERED: METAGLIP 2.5 MG1 TA1 PO (18:53)
[2021-11-15] MEDS ORDERED: NATURAL MAGNES200 MG PO (19:19)
[2021-11-15] MEDS ORDERED: VITAMIN D31000 I1 PO (19:19)
[2021-11-15] MEDS ORDERED: PHARMASSURE ZIN50 MG (19:19)
[2021-11-15 23:30] LABS: MAGNESIUM 1.7 mg/dL (1.6-2.6)
[2021-11-15 23:46] LABS: TSH w REFLEX 0.65 uIU/mL (0.350-4.940)
[2021-11-16] VITALS (15 sets, daily range): BP systolic 97–150; BP diastolic 52–94; PULSE 41–94; TEMP 97.4–98.7
--- NOTE | 2021-11-16 04:46 | NUR ---
PATIENT TO ROOM PER ED CART/TRANSPORTED BY ED PCT. PATIENT ABLE TO WALK FROM CART TO HOSP BED WITH NO C/O OF CHEST PAIN/SOA. PLACED ON DYNAMAP MACHINE FOR HOURLY VS PER CARDIZEM DRIP PROTOCOL. TELE IN PLACE. ON ROOM AIR. CALL LIGHT WITHIN REACH.
[2021-11-16 06:08] LABS: BASO # 0.1 K/mm3 (0.0-0.2); BASO % 0.8 % (0.0-2.0); EOS # 0.3 K/mm3 (0.0-0.7); EOS % 3.9 % (0.0-4.0); GRAN # 5.4 K/mm3 (1.4-6.5); GRAN % 72.2 % (42.2-75.2); HEMATOCRIT 37.6 % (37.0-47.0); HEMOGLOBIN 12.4 g/dl (12.5-16.0); LYMPH % 13.3 % (20.0-51.0); MEAN CELL VOLUME 89 fl (80.0-100.0); MEAN CORPUSCULAR HEMOGLOBIN 29 pg (27-31); MEAN CORPUSCULAR HGB CONC 33 g/dl (33.0-37.0); MEAN PLATELET VOLUME 11.7 fl (7.4-10.4); MONO # 0.7 K/mm3 (0.1-0.6); MONO % 9.5 % (1.7-9.3); PLATELET COUNT 144 K/mm3 (130-400); RED BLOOD COUNT 4.25 M/mm3 (4.10-5.30); REDCELL DISTRIBUTION WIDTH-CV 13.9 % (11.5-14.5)
[2021-11-16 06:31] LABS: CALCIUM 8.7 mg/dL (8.4-10.2); CREATININE, serum 0.74 mg/dL (0.57-1.11); POTASSIUM 3.4 mmol/L (3.5-4.5)
--- NOTE | 2021-11-16 07:00 | NUR ---
CHANGE OF SHIFT REPORT GIVEN TO DAY SHIFT RNRENA
--- NOTE | 2021-11-16 10:08 | NUR ---
SW met with the patient to discuss discharge plan. The patient lives alone in a house with her dogs in [place]. She reports independence with ADLs and has a cane and walker. The patient's PCP is Dr. Daniela Vega and she receives her medications from [facility]. She reports no difficulties obtaining her meds. The patient's DPOA-HC is in EMR and it designates her friend, Rachel Woodruff (ph#[phone], [place]). The alternate is her other friend, Cate Marcus (ph#[phone]). Cate lives locally. The patient plans on returning home upon discharge. She reports that she will have transport home. SW discussed home health services. The patient reports that she is not interested in home health at this time. She is currently on 1 liter of oxygen. SW to continue to monitor. *Discharge plan: home*
[2021-11-17 00:29] VITALS: BP 143/56; PULSE 67; TEMP 98.7
[2021-11-17 03:51] VITALS: BP 138/60; PULSE 77; TEMP 97.8
[2021-11-17 05:52] LABS: BASO # 0.1 K/mm3 (0.0-0.2); BASO % 0.5 % (0.0-2.0); EOS # 0.2 K/mm3 (0.0-0.7); EOS % 2.2 % (0.0-4.0); GRAN % 81.5 % (42.2-75.2); HEMOGLOBIN 11.9 g/dl (12.5-16.0); LYMPH # 0.7 K/mm3 (1.2-3.4); LYMPH % 7.3 % (20.0-51.0); MEAN CELL VOLUME 90 fl (80.0-100.0); MEAN CORPUSCULAR HEMOGLOBIN 29 pg (27-31); MEAN CORPUSCULAR HGB CONC 32 g/dl (33.0-37.0); MEAN PLATELET VOLUME 11.7 fl (7.4-10.4); MONO # 0.8 K/mm3 (0.1-0.6); MONO % 8.1 % (1.7-9.3); PLATELET COUNT 142 K/mm3 (130-400); RED BLOOD COUNT 4.08 M/mm3 (4.10-5.30); REDCELL DISTRIBUTION WIDTH-CV 14.1 % (11.5-14.5)
[2021-11-17 06:06] LABS: CALCIUM 8.6 mg/dL (8.4-10.2); CREATININE, serum 0.81 mg/dL (0.57-1.11); MAGNESIUM 1.8 mg/dL (1.6-2.6)
[2021-11-17 06:18] LABS: HEMATOCRIT 36.8 % (37.0-47.0)
[2021-11-17 06:26] LABS: POTASSIUM 3.7 mmol/L (3.5-4.5)
[2021-11-17 07:22] VITALS: BP 138/63; PULSE 65; TEMP 98
[2021-11-17] MEDS ORDERED: BETAPACE 120MG120 MG PO (11:03)
[2021-11-17 11:27] VITALS: BP 147/53; PULSE 57; TEMP 98.3
--- NOTE | 2021-11-17 14:16 | NUR ---
PT MET CRITERIA FOR DISCHARGE, VSS. IV REMOVED WITHOUT COMPLICATIONS, CATHETER INTACT. DISCHARGE INSTRUCTIONS REVIEWED, PT VERBALIZED UNDERSTANDING. PT AWARE OF F/U APPT AND OF PRESCRIPTIONS TO JAVA SYSTEMS ANALYST. PT DC TO HOME VIA WHEELCHAIR ACCOMPANIED BY PICK UP DRIVER.
== END 2021-11-17 14:20 | disposition home or self-care (01) | DRG 309 ==
LOC: COL.ER 15:12 → SURG 19:00
PROVIDERS: Nurse Practitioner Family; Physician Assistant; Student in an Organized Health Care Education/Training Program; ADMIT Student in an Organized Health Care Education/Training Program
PROC: 5A2204Z Restoration of Cardiac Rhythm, Single (ICD-10-PCS; principal; 2021-11-16)
DX: I48.0 Paroxysmal atrial fibrillation (principal); Z68.42 Body mass index [BMI] 45.0-49.9, adult; I10 Essential (primary) hypertension; E78.5 Hyperlipidemia, unspecified; E11.9 Type 2 diabetes mellitus without complications; G47.33 Obstructive sleep apnea (adult) (pediatric); E66.01 Morbid (severe) obesity due to excess calories; E03.9 Hypothyroidism, unspecified; I34.0 Nonrheumatic mitral (valve) insufficiency; Z96.653 Presence of artificial knee joint, bilateral; Z96.611 Presence of right artificial shoulder joint; Z85.3 Personal history of malignant neoplasm of breast; Z79.82 Long term (current) use of aspirin; Z23 Encounter for immunization
CPT/HCPCS: 99222-AI; 99232-AI; 99239; J1815; J2704; J3480

== ENCOUNTER 2022-04-06 12:34 | Day surgery (SDC) | payer MEDICARE, BC ==
[~2022-04-06 12:34] MED LIST changes: +BETAPACE 120MG120 MG PO; +METAGLIP 2.5 MG1 TA1 PO; +NATURAL MAGNES200 MG PO; +PHARMASSURE ZIN50 MG PO; +VITAMIN D31000 I1 PO
[2022-04-06 13:21] VITALS: BP 164/93; PULSE 84; TEMP 98.4
[2022-04-06 13:24] LABS: HEMATOCRIT 41.7 % (37.0-47.0); HEMOGLOBIN 13.6 g/dl (12.5-16.0); MEAN CELL VOLUME 91 fl (80.0-100.0); MEAN CORPUSCULAR HEMOGLOBIN 30 pg (27-31); MEAN CORPUSCULAR HGB CONC 33 g/dl (33.0-37.0); MEAN PLATELET VOLUME 11.8 fl (7.4-10.4); PLATELET COUNT 151 K/mm3 (130-400); RED BLOOD COUNT 4.61 M/mm3 (4.10-5.30); REDCELL DISTRIBUTION WIDTH-CV 14.3 % (11.5-14.5)
[2022-04-06 13:31] LABS: INR 1.3 (0.8-3.0); PROTHROMBIN TIME 15.3 SECONDS (9.7-12.8)
[2022-04-06 13:48] LABS: CALCIUM 8.9 mg/dL (8.4-10.2); CREATININE, serum 0.98 mg/dL (0.57-1.11); POTASSIUM 4.3 mmol/L (3.5-4.5)
[2022-04-06] MEDS ORDERED: HYGROTON 2525 MG/TAB PO (13:48)
[2022-04-06] MEDS ORDERED: COREG 6.256.25 MG/TA PO (13:48)
[2022-04-06] MEDS ORDERED: ELIQUIS 5MG PO (13:49)
[2022-04-06] MEDS ORDERED: COZAAR100 MG PO (13:50)
[2022-04-06] MEDS ORDERED: METAGLIP 2.5 MG1 TA1 PO (13:50)
[2022-04-06] MEDS ORDERED: BETAPACE 80MG80 MG PO (13:51)
[2022-04-06] MEDS ORDERED: SYNTHROID 0.10.15 MG PO (13:52)
[2022-04-06] MEDS ORDERED: ASPIRIN 81M81 MG/TA2 PO (13:53)
[2022-04-06 14:10] LABS: THYROID STIMULATING HORMONE 2.919 uIU/mL (0.350-4.940)
[2022-04-06 14:30] VITALS: BP 159/90; PULSE 57
[2022-04-06 14:45] VITALS: BP 147/88; PULSE 56
[2022-04-06 15:00] VITALS: BP 163/89; PULSE 54
[2022-04-06 15:15] VITALS: BP 118/101; PULSE 53
[2022-04-06] MEDS ORDERED: BETAPACE 120MG120 MG PO (15:43)
--- NOTE | 2022-04-06 16:17 | NUR ---
Discharge instructions given to pt.Pt verbalizes understanding.INT rmeoved,catheter tip intact.Pt escorted out via wheelchair by htis nurse.
== END 2022-04-06 16:17 ==
LOC: COL.CAR 12:34
PROVIDERS: Internal Medicine Cardiovascular Disease
DX: I48.0 Paroxysmal atrial fibrillation (principal)
CPT/HCPCS: J2704; J7120

== ENCOUNTER 2022-05-16 07:22 | Day surgery (SDC) | payer MEDICARE, BC ==
[~2022-05-16] VITALS: Ht 172.8 cm; Wt 143.8 kg
[~2022-05-16 07:22] MED LIST changes: +COREG 6.256.25 MG/TA PO; +SYNTHROID 0.10.15 MG PO
[2022-05-16 08:23] LABS: HEMATOCRIT 39.8 % (37.0-47.0); HEMOGLOBIN 13.1 g/dl (12.5-16.0); MEAN CELL VOLUME 90 fl (80.0-100.0); MEAN CORPUSCULAR HEMOGLOBIN 30 pg (27-31); MEAN CORPUSCULAR HGB CONC 33 g/dl (33.0-37.0); MEAN PLATELET VOLUME 11.6 fl (7.4-10.4); PLATELET COUNT 127 K/mm3 (130-400); RED BLOOD COUNT 4.43 M/mm3 (4.10-5.30); REDCELL DISTRIBUTION WIDTH-CV 13.5 % (11.5-14.5)
[2022-05-16 08:33] LABS: INR 1.4 (0.8-3.0); PROTHROMBIN TIME 16.6 SECONDS (9.7-12.8)
[2022-05-16 08:36] LABS: PARTIAL THROMBOPLASTIN TIME 38.2 SECONDS (26.0-37.0)
[2022-05-16 08:38] LABS: CALCIUM 8.9 mg/dL (8.4-10.2); CREATININE, serum 0.77 mg/dL (0.57-1.11); MAGNESIUM 1.8 mg/dL (1.6-2.6); POTASSIUM 3.8 mmol/L (3.5-4.5)
[2022-05-16] MEDS ORDERED: BETAPACE 120MG120 MG PO (08:45)
[2022-05-16] MEDS ORDERED: MASON NATURAL1200 MG PO (08:48)
[2022-05-16] MEDS ORDERED: PROBIOTIC BLEN1 EACH PO (08:48)
[2022-05-16 08:49] VITALS: BP 163/96; PULSE 51; TEMP 97.9
[2022-05-16 08:58] LABS: THYROID STIMULATING HORMONE 1.213 uIU/mL (0.350-4.940)
--- NOTE | 2022-05-16 10:17 | NUR ---
Discharge instructions given to pt.Pt verbalizes understanding.Pt escorted out by this nurse.
== END 2022-05-16 10:18 ==
LOC: COL.CAR 07:22
PROVIDERS: Internal Medicine Cardiovascular Disease
DX: I48.91 Unspecified atrial fibrillation (principal); Z53.8 Procedure and treatment not carried out for other reasons; Z87.891 Personal history of nicotine dependence

== ENCOUNTER 2024-06-10 10:09 | Emergency (ER) | payer MEDICARE, BC ==
[~2024-06-10] VITALS: Ht 172.7 cm; Wt 111.4 kg
[~2024-06-10 10:09] MED LIST changes: +MASON NATURAL1200 MG PO; +PROBIOTIC BLEN1 EACH PO
[2024-06-10 10:45] LABS: BASO # 0.1 K/mm3 (0.0-0.2); EOS # 0.2 K/mm3 (0.0-0.7); GRAN # 5.7 K/mm3 (1.4-6.5); GRAN % 77.7 % (42.2-75.2); HEMATOCRIT 45.2 % (37.0-47.0); LYMPH # 0.8 K/mm3 (1.2-3.4); LYMPH % 11.3 % (20.0-51.0); MEAN CELL VOLUME 98 fl (80.0-100.0); MEAN CORPUSCULAR HEMOGLOBIN 30 pg (27-31); MEAN CORPUSCULAR HGB CONC 31 g/dl (33.0-37.0); MEAN PLATELET VOLUME 11.7 fl (7.4-10.4); MONO # 0.5 K/mm3 (0.1-0.6); MONO % 6.7 % (1.7-9.3); PLATELET COUNT 141 K/mm3 (130-400); RED BLOOD COUNT 4.63 M/mm3 (4.10-5.30); REDCELL DISTRIBUTION WIDTH-CV 14.1 % (11.5-14.5)
[2024-06-10] MEDS ORDERED: dilTIAZem 25 MG/5 ML VIAL IV ONE (10:45)
[2024-06-10 10:49] LABS: PROTHROMBIN TIME 21.2 SECONDS (9.7-12.8)
[2024-06-10 10:51] LABS: PARTIAL THROMBOPLASTIN TIME 41.4 SECONDS (26.0-37.0)
[2024-06-10 10:55] LABS: ALANINE AMINOTRANSFERASE 20 U/L (0-55); ALBUMIN 3.5 g/dL (3.4-4.8); ALKALINE PHOSPHATASE 77 U/L (40-150); ANION GAP 13 mmol/L (7-16); AST,SGOT 22 U/L (5-34); BILIRUBIN,TOTAL 1.7 mg/dL (0.2-1.2); BLOOD UREA NITROGEN 18 mg/dL (10-20); CALCIUM 9.8 mg/dL (8.4-10.2); CHLORIDE 110 mEq/L (98-107); CREATININE, serum 1.08 mg/dL (0.57-1.11); GLUCOSE 80 mg/dL (70-99); POTASSIUM 4.1 mEq/L (3.5-4.5); SODIUM 144 mEq/L (136-145); TOTAL PROTEIN 6.4 g/dl (6.2-8.1)
[2024-06-10 11:11] LABS: TROPONIN-I < 0.010 ng/mL (0.00-0.033)
[2024-06-10 16:58] VITALS: BP 120/76; PULSE 58
== END 2024-06-10 16:58 | disposition home or self-care (01) ==
LOC: COL.ER 10:09
PROVIDERS: Family Medicine
DX: I48.91 Unspecified atrial fibrillation (principal); Z79.899 Other long term (current) drug therapy
CPT/HCPCS: J0282; J7060

== ENCOUNTER 2024-06-30 00:46 | Inpatient (IN) | payer MEDICARE, BC ==
[2024-06-30] VITALS (26 sets, daily range): BP systolic 105–131; BP diastolic 45–109; PULSE 56–144; TEMP 97.4–98.6
[~2024-06-30] VITALS: Ht 172.7 cm; Wt 120.2 kg
[2024-06-30 01:14] LABS: BASO # 0.1 K/mm3 (0.0-0.2); EOS # 0.4 K/mm3 (0.0-0.7); EOS % 5.3 % (0.0-4.0); GRAN # 3.9 K/mm3 (1.4-6.5); GRAN % 57.7 % (42.2-75.2); HEMATOCRIT 46.5 % (37.0-47.0); HEMOGLOBIN 14.4 g/dl (12.5-16.0); LYMPH # 1.8 K/mm3 (1.2-3.4); LYMPH % 26.9 % (20.0-51.0); MEAN CELL VOLUME 95 fl (80.0-100.0); MEAN CORPUSCULAR HEMOGLOBIN 29 pg (27-31); MEAN CORPUSCULAR HGB CONC 31 g/dl (33.0-37.0); MEAN PLATELET VOLUME 11.8 fl (7.4-10.4); MONO # 0.6 K/mm3 (0.1-0.6); PLATELET COUNT 152 K/mm3 (130-400); RED BLOOD COUNT 4.89 M/mm3 (4.10-5.30); REDCELL DISTRIBUTION WIDTH-CV 14.2 % (11.5-14.5)
[2024-06-30 01:30] LABS: ALBUMIN 3.6 g/dL (3.4-4.8); BILIRUBIN,TOTAL 1.3 mg/dL (0.2-1.2); CALCIUM 9.4 mg/dL (8.4-10.2); CREATININE, serum 1.13 mg/dL (0.57-1.11); POTASSIUM 4.1 mEq/L (3.5-4.5); TOTAL PROTEIN 6.3 g/dl (6.2-8.1)
[2024-06-30] MEDS ORDERED: dilTIAZem 25 MG/5 ML VIAL IV ONE (01:30)
[2024-06-30 01:36] LABS: TROPONIN-I 0.011 ng/mL (0.00-0.033)
[2024-06-30] MEDS ORDERED: Metoprolol Tartrate 5 MG/5 ML VIAL IV ONE ×2 (02:11→04:00)
[2024-06-30 03:09] LABS: MAGNESIUM 1.5 mg/dL (1.6-2.6)
--- NOTE | 2024-06-30 03:11 | NUR ---
RECIEVED REPORT FROM MARTIN DASILVA RN. PATIENT ARRIVED TO UNIT AROUND 0310, ALL BELONGINS WITH PATIENT AT TIME OF TRANSFER, PATIENT TRANSFERRED BY WHEELCHAIR. PATIENT ALERT AND ORIENTED, NO ACUTE EVENTS.
[2024-06-30] MEDS ORDERED: dilTIAZem 30 MG TAB PO ONE (03:15)
[2024-06-30 03:29] LABS: TSH w REFLEX 3.695 uIU/mL (0.350-4.940)
[2024-06-30] MEDS ORDERED: LR 1,000 ML IV SCH ×2 (03:45→10:30)
--- NOTE | 2024-06-30 07:15 | NUR ---
awake resting in bed, bedside shift report received from GRAEME Cornell
--- NOTE | 2024-06-30 07:33 | NUR ---
MEWS score is 4, this is reported to GRAEME Elizondo, the patient is alert and oriented and denies any pain or needs, Heart Rate is 136 and she is on telemetry
[2024-06-30] MEDS ORDERED: ALDACTONE 25MG25 M1 PO (08:02)
[2024-06-30] MEDS ORDERED: SYNTHROID0.125 MG/T PO (08:05)
[2024-06-30] MEDS ORDERED: MICARDIS80 MG PO (08:05)
[2024-06-30] MEDS ORDERED: JARDIANCE10 (08:08)
[2024-06-30] MEDS ORDERED: OZEMPIC2 MG/0.75 SQ (08:08)
--- NOTE | 2024-06-30 08:14 | NUR ---
full assessment completed, see interventions for further info, med johnathon completed also, denies pain or needs at this time
[2024-06-30] MEDS ORDERED: Amiodarone 450 MG in D5W Excel 250 ML IV SCH (09:00)
--- NOTE | 2024-06-30 09:22 | NUR ---
Stitch Bonding Machine Tender met with patient to discuss discharge planning. Patient lives alone in [place] and sees Dr. Vega for primary care. Patient gets medications from [facility] and while she stated that some of them get "pricey" she stated she can normally afford her medications. Patient has a home CPAP and a cane that she uses as needed. Patient is independent with ADLS, including driving. Patient has DPOA-HC in EMR designating her friends, Rachel (ph#[phone]) and Cate (ph#[phone]). Patient plans to return home at time of discharge. Discharge Plan: Home
[2024-06-30] MEDS ORDERED: Apixaban 5 MG TABLET PO SCH (09:31)
--- NOTE | 2024-06-30 09:50 | NUR ---
amiodorpme bolus started, see VS intervention for further info, computer technology instructor also notified of drip being started
--- NOTE | 2024-06-30 09:56 | NUR ---
heart rate 136 on dynampa, only 117 on groundwater monitoring technician
--- NOTE | 2024-06-30 10:00 | NUR ---
tolerated amiodorone bolus and drip started at 1mg/hr, IV site without redness or swelling
[2024-06-30 10:01] LABS: BASO # 0.1 K/mm3 (0.0-0.2); BASO % 1.2 % (0.0-2.0); EOS # 0.3 K/mm3 (0.0-0.7); EOS % 4.9 % (0.0-4.0); GRAN # 3.7 K/mm3 (1.4-6.5); GRAN % 62.4 % (42.2-75.2); HEMATOCRIT 42.7 % (37.0-47.0); HEMOGLOBIN 13.8 g/dl (12.5-16.0); LYMPH # 1.3 K/mm3 (1.2-3.4); LYMPH % 22.7 % (20.0-51.0); MEAN CELL VOLUME 93 fl (80.0-100.0); MEAN CORPUSCULAR HEMOGLOBIN 30 pg (27-31); MEAN CORPUSCULAR HGB CONC 32 g/dl (33.0-37.0); MEAN PLATELET VOLUME 12.3 fl (7.4-10.4); MONO # 0.5 K/mm3 (0.1-0.6); MONO % 8.5 % (1.7-9.3); PLATELET COUNT 130 K/mm3 (130-400); REDCELL DISTRIBUTION WIDTH-CV 14.3 % (11.5-14.5)
[2024-06-30 10:25] LABS: CALCIUM 8.9 mg/dL (8.4-10.2); CREATININE, serum 0.95 mg/dL (0.57-1.11); MAGNESIUM 1.6 mg/dL (1.6-2.6); POTASSIUM 4.1 mEq/L (3.5-4.5)
--- NOTE | 2024-06-30 11:32 | NUR ---
amiodorone infusion continues, monitoring tech shows heart rate 133, IV site remains without redness or swelling
--- NOTE | 2024-06-30 13:13 | NUR ---
amiodorone infusion continues and site remains without redness or swelling, GRAEME Thomas in and obtaining conent for cardioversion, patient denies needs
--- NOTE | 2024-06-30 13:17 | NUR ---
to [employer] per bed
--- NOTE | 2024-06-30 14:00 | NUR ---
returned to room from [facility] [employer] after cardioversion, awake and alert, INT intact to left antecubital without redness or swelling noted,
[2024-06-30] MEDS ORDERED: BETAPACE 80MG80 MG PO (14:29)
--- NOTE | 2024-06-30 14:45 | NUR ---
instructed on ordering something to eat and informed her she has discharge orders, verbalizes understanding
--- NOTE | 2024-06-30 15:26 | NUR ---
sitting up in bed eating, denies needs, will plan discharge later
--- NOTE | 2024-06-30 16:05 | NUR ---
had late lunch and tolerated well, telemetry discontinued
[2024-06-30] MEDS ORDERED: AMIODARONE IV SCH (16:30)
[2024-06-30] MEDS ORDERED: DEXTROSE IV SCH (16:30)
--- NOTE | 2024-06-30 16:30 | NUR ---
discharge instructions given to patient, verbalizes understanding
--- NOTE | 2024-06-30 17:00 | NUR ---
discharged per WC
== END 2024-06-30 17:00 | disposition home or self-care (01) | DRG 309 ==
LOC: COL.ER 00:46 → MEDICAL 02:21
PROVIDERS: Internal Medicine; Nurse Practitioner Primary Care; ADMIT Internal Medicine
PROC: 5A2204Z Restoration of Cardiac Rhythm, Single (ICD-10-PCS; principal; 2024-06-30)
DX: I48.0 Paroxysmal atrial fibrillation (principal); Z68.41 Body mass index [BMI] 40.0-44.9, adult; E11.9 Type 2 diabetes mellitus without complications; E03.9 Hypothyroidism, unspecified; I10 Essential (primary) hypertension; G47.33 Obstructive sleep apnea (adult) (pediatric); E78.5 Hyperlipidemia, unspecified; E66.01 Morbid (severe) obesity due to excess calories; R53.1 Weakness; Z79.84 Long term (current) use of oral hypoglycemic drugs; Z79.01 Long term (current) use of anticoagulants; Z79.82 Long term (current) use of aspirin; Z79.890 Hormone replacement therapy; Z85.3 Personal history of malignant neoplasm of breast; Z92.21 Personal history of antineoplastic chemotherapy
CPT/HCPCS: J0282; J2704; J3475; J7060; J7120

== ENCOUNTER 2024-07-02 09:58 | Emergency (ER) | payer MEDICARE, BC ==
[~2024-07-02] VITALS: Ht 172.7 cm; Wt 113.6 kg
[~2024-07-02 09:58] MED LIST changes: +ALDACTONE 25MG25 M1 PO; +JARDIANCE10; +MICARDIS80 MG PO; +OZEMPIC2 MG/0.75 SQ; +SYNTHROID0.125 MG/T PO
[2024-07-02 10:22] LABS: BASO # 0.1 K/mm3 (0.0-0.2); BASO % 1.4 % (0.0-2.0); EOS # 0.4 K/mm3 (0.0-0.7); EOS % 6.2 % (0.0-4.0); GRAN # 4.3 K/mm3 (1.4-6.5); GRAN % 67.5 % (42.2-75.2); HEMATOCRIT 47.2 % (37.0-47.0); HEMOGLOBIN 15.1 g/dl (12.5-16.0); LYMPH % 16.2 % (20.0-51.0); MEAN CELL VOLUME 93 fl (80.0-100.0); MEAN CORPUSCULAR HEMOGLOBIN 30 pg (27-31); MEAN CORPUSCULAR HGB CONC 32 g/dl (33.0-37.0); MEAN PLATELET VOLUME 11.7 fl (7.4-10.4); MONO # 0.5 K/mm3 (0.1-0.6); MONO % 8.4 % (1.7-9.3); PLATELET COUNT 145 K/mm3 (130-400); RED BLOOD COUNT 5.07 M/mm3 (4.10-5.30); REDCELL DISTRIBUTION WIDTH-CV 14.4 % (11.5-14.5)
[2024-07-02 10:28] LABS: INR 1.9 (0.8-3.0); PROTHROMBIN TIME 19.8 SECONDS (9.7-12.8)
[2024-07-02 11:08] LABS: ALBUMIN 3.5 g/dL (3.4-4.8); BILIRUBIN,TOTAL 1.7 mg/dL (0.2-1.2); CALCIUM 9.5 mg/dL (8.4-10.2); CREATININE, serum 1.02 mg/dL (0.57-1.11); POTASSIUM 4.2 mEq/L (3.5-4.5); TOTAL PROTEIN 6.3 g/dl (6.2-8.1)
[2024-07-02 11:13] LABS: TROPONIN-I 0.012 ng/mL (0.00-0.033)
[2024-07-02] MEDS ORDERED: NS 500 ML IV ONE (11:30)
[2024-07-02 13:22] VITALS: BP 137/94; PULSE 65
== END 2024-07-02 13:35 | disposition home or self-care (01) ==
LOC: COL.ER 09:58
PROVIDERS: Emergency Medicine
DX: I48.91 Unspecified atrial fibrillation (principal); E66.9 Obesity, unspecified; Z79.01 Long term (current) use of anticoagulants; Z68.38 Body mass index [BMI] 38.0-38.9, adult
CPT/HCPCS: J2704; J7040

== ENCOUNTER 2024-07-30 18:39 | Emergency (ER) | payer MEDICARE, BC ==
[~2024-07-30] VITALS: Ht 172.7 cm; Wt 118.2 kg
[2024-07-30 18:52] VITALS: TEMP 97.7
[2024-07-30] MEDS ORDERED: Magnesium Sulfate 4% 50 ML IV ONE (19:15)
[2024-07-30] MEDS ORDERED: dilTIAZem 25 MG/5 ML VIAL IV ONE (19:15)
[2024-07-30 19:16] LABS: BASO # 0.1 K/mm3 (0.0-0.2); BASO % 1.5 % (0.0-2.0); EOS # 0.3 K/mm3 (0.0-0.7); EOS % 4.3 % (0.0-4.0); GRAN # 4.3 K/mm3 (1.4-6.5); GRAN % 63.4 % (42.2-75.2); HEMATOCRIT 45.7 % (37.0-47.0); HEMOGLOBIN 14.5 g/dl (12.5-16.0); LYMPH # 1.6 K/mm3 (1.2-3.4); LYMPH % 23.5 % (20.0-51.0); MEAN CELL VOLUME 94 fl (80.0-100.0); MEAN CORPUSCULAR HEMOGLOBIN 30 pg (27-31); MEAN CORPUSCULAR HGB CONC 32 g/dl (33.0-37.0); MONO # 0.5 K/mm3 (0.1-0.6); MONO % 7.2 % (1.7-9.3); PLATELET COUNT 152 K/mm3 (130-400); RED BLOOD COUNT 4.85 M/mm3 (4.10-5.30); REDCELL DISTRIBUTION WIDTH-CV 14.6 % (11.5-14.5)
[2024-07-30 19:46] LABS: ALBUMIN 3.6 g/dL (3.4-4.8); CALCIUM 9.3 mg/dL (8.4-10.2); CREATININE, serum 1.15 mg/dL (0.57-1.11); MAGNESIUM 1.7 mg/dL (1.6-2.6); POTASSIUM 4.5 mEq/L (3.5-4.5); TOTAL PROTEIN 6.3 g/dl (6.2-8.1)
[2024-07-30 21:40] VITALS: BP 137/89; PULSE 59
== END 2024-07-30 21:52 | disposition home or self-care (01) ==
LOC: COL.ER 18:39
PROVIDERS: Emergency Medicine
DX: I48.91 Unspecified atrial fibrillation (principal)
CPT/HCPCS: J2704; J3475